=== PATIENT | male | born 1980 ===

== ENCOUNTER 2024-08-28 05:15 | Emergency (ER) | payer SELFPAY ==
[~2024-08-28] VITALS: Ht 170.2 cm; Wt 79.4 kg
[2024-08-28 05:18] VITALS: BP 148/81; PULSE 69; RESP 18; TEMP 98.3; O2SAT 96
== END 2024-08-28 05:40 ==
LOC: MED 05:15
DX: V49.9XXA Car occupant (driver) (passenger) injured in unspecified traffic accident, initial encounter; Y93.89 Activity, other specified; Y92.89 Other specified places as the place of occurrence of the external cause; Y99.8 Other external cause status
CPT/HCPCS: 99283